=== PATIENT | female | born 1985 | race Caucasian/White ===

== ENCOUNTER 2020-08-13 21:50 | Outpatient (CLI) | payer OTHER ==
[2020-08-13] MEDS ORDERED: PRENATAL CAPLE1 EAC1 PO (22:29)
[2020-08-13] MEDS ORDERED: ADULT LOW DOSE81 M1 PO (22:29)
== END 2020-08-14 12:00 | disposition home or self-care (01) ==
LOC: OBS/DEL 21:50
PROVIDERS: ATTEND Specialist
DX: O26.892 Other specified pregnancy related conditions, second trimester (principal); S31.42XA Laceration with foreign body of vagina and vulva, initial encounter; O26.852 Spotting complicating pregnancy, second trimester; Z3A.21 21 weeks gestation of pregnancy; W26.8XXA Contact with other sharp object(s), not elsewhere classified, initial encounter; Y93.89 Activity, other specified; Y92.098 Other place in other non-institutional residence as the place of occurrence of the external cause; Y99.8 Other external cause status

== ENCOUNTER 2020-10-04 13:52 | Inpatient (IN) | payer OTHER ==
[~2020-10-04] VITALS: Ht 157.5 cm; Wt 69.4 kg
[~2020-10-04 13:52] MED LIST: ADULT LOW DOSE81 M1 PO; PRENATAL CAPLE1 EAC1 PO
[2020-10-11] MEDS ORDERED: Procardia Xl 30MG TA PO (17:59)
== END 2020-10-11 18:31 | disposition home or self-care (01) | DRG 832 ==
LOC: OBS/DEL 13:52 → LDR 19:07 → OB/GYN 10-07 14:41
PROVIDERS: ADMIT Specialist; ATTEND Specialist
PROC: 4A1HXFZ Monitoring of Products of Conception, Cardiac Rhythm, External Approach (ICD-10-PCS; principal; 2020-10-04)
DX: O60.03 Preterm labor without delivery, third trimester (principal); O26.873 Cervical shortening, third trimester; Z3A.29 29 weeks gestation of pregnancy; Z20.822 Contact with and (suspected) exposure to COVID-19

== ENCOUNTER 2020-11-15 08:50 | Outpatient (CLI) | payer OTHER ==
[~2020-11-15 08:50] MED LIST changes: +Procardia Xl 30MG TA PO
== END 2020-11-15 21:28 | disposition home or self-care (01) ==
LOC: OBS/DEL 08:50
PROVIDERS: ATTEND Specialist
DX: O60.03 Preterm labor without delivery, third trimester (principal); O26.873 Cervical shortening, third trimester; Z3A.35 35 weeks gestation of pregnancy

== ENCOUNTER 2020-11-21 02:54 | Inpatient (IN) | payer OTHER ==
[~2020-11-21] VITALS: Ht 157.5 cm; Wt 71.2 kg
[2020-11-21] MEDS ORDERED: CEFADROXIL500 MG PO (04:31)
[2020-11-21] MEDS ORDERED: ENDOMETRIN100 MG VAG (04:32)
[2020-11-22] MEDS ORDERED: NIFEDIPINE ER30 M1 (08:32)
[2020-11-23] MEDS ORDERED: PERCOCET 5-3251 EACH PO (09:42)
[2020-11-23] MEDS ORDERED: SURFAK240 M1 PO (09:42)
== END 2020-11-24 11:45 | disposition home or self-care (01) | DRG 788 ==
LOC: OB/GYN 02:54 → LDR 02:54 → O/R 09:15 → OB/GYN 10:33
PROVIDERS: ADMIT Specialist; ATTEND Specialist
PROC: 4A1HXFZ Monitoring of Products of Conception, Cardiac Rhythm, External Approach (ICD-10-PCS; 2020-11-21)
PROC: 10D00Z1 Extraction of Products of Conception, Low, Open Approach (ICD-10-PCS; principal; 2020-11-21 08:00)
DX: O65.5 Obstructed labor due to abnormality of maternal pelvic organs (principal); O34.29 Maternal care due to uterine scar from other previous surgery; O42.013 Preterm premature rupture of membranes, onset of labor within 24 hours of rupture, third trimester; Z3A.36 36 weeks gestation of pregnancy; Z37.0 Single live birth; Z20.822 Contact with and (suspected) exposure to COVID-19